=== PATIENT | female | born 1995 | race Caucasian/White ===

== ENCOUNTER 2021-10-26 11:57 | Outpatient (REF) | payer BC, SELFPAY ==
--- NOTE | 2021-10-26 08:45 | PAPFT_PTH ---
PATIENT: Karli Whitney LOC: [facility] U#:[id number] AGE/SX: 26/F ROOM: RE10/26/[address]: Rosamaria Henry : 1995 BED: DIS: 10/26/2021 SPEC #: [id number] RECD: 10/26/21 13:02 STATUS: TOSHA REPrincess #: [id number] DINH: 10/26/21 08:[address]: Rosamaria Henry DEPT: [facility] Cytology RECD BY: Chey Durand Tissues: 1 - CX/ENDOCX FOR PAP SMEARS Procedures: PAP THIN PREP/UVM Screening Comments: [id number]
== END 2021-10-26 11:58 | disposition home or self-care (01) ==
LOC: LBN 11:57
PROVIDERS: Visit Provider Obstetrics & Gynecology Gynecology
DX: Z12.4 Encounter for screening for malignant neoplasm of cervix (principal)
CPT/HCPCS: 88142

== ENCOUNTER 2022-03-05 19:59 | Emergency (ER) | payer BC, SELFPAY ==
[2022-03-05 20:21] VITALS: PULSE 100; RESP 18; TEMP 37.1; O2SAT 100
--- NOTE | 2022-03-05 20:30 | DI.CT_ITS ---
Exam(s) CT BRAIN CTA EXAM: CT BRAIN CTA CLINICAL HISTORY: headache, slurred speech. TECHNIQUE: Imaging Protocol: Both noninfused and contrast infused CT scans of the brain were perform ed. IV Contrast Dose =85 cc Axial computed tomography images with coronal and sagittal reformatted images were created and review ed COMPARISON: No exams were available for comparison FINDINGS: CTA BRAIN: Anterior circulation: Both internal carotid arteries are patent in the skull base-carotid canals as w ell within the cavernous sinuses. Supraclinoid aspects are patent. Both A1 segments are patent as a re the anterior cerebral arteries. There is no aneurysm at the level of the anterior communicating a rtery. Both middle cerebral arteries are patent. No high-grade stenosis nor occlusion. No aneurysms. Posterior circulation: Both vertebral arteries are patent at the skull base and both vertebral arteri es contribute to the formation of the basilar artery. Basilar artery is patent. Distally it gives o ff patent bilateral superior cerebellar arteries and above this level terminates as posterior cerebra l arteries which appear patent. No aneurysm at tip of the basilar artery. BRAIN: There are no skull fractures nor fluid in the visualized paranasal sinuses. There is no evidence of intracranial hemorrhage, mass effect, or shift of midline structures. There are no extra-axial fluid collections. The ventricles are not enlarged or shifted and there is no blo od within the ventricular system nor within the basal cisterns. There are no ring enhancing lesions in the brain and there is no abnormal meningeal enhancement, foca l or diffuse. IMPRESSION: No significant findings on this CT angiography study of the brain. Intracranial vessels are patent. No incidental aneurysm is evident No significant intracranial findings.Also no ring enhancing lesions in the brain nor abnormal meninge al enhancement. RADIATION DOSE DELIVERED: 1,606.81mGy.cm Total DLP DATA REPOSITORY: All CT scans at this facility are submitted to the National Radiology Data Registry (NRDR) Dose Index Registry (DIR) with the [employer] (ACR). RADIATION OPTIMIZATION: All CT scans at this facility use at least one of these dose optimization te chniques: automated exposure control; mA and/or kV adjustment per patient size (includes targeted exa ms where dose is matched to clinical indication); or iterative reconstruction.
--- NOTE | 2022-03-05 20:41 | ED.GENADUL_ITS ---
Discharge Plan Disposition Patient Disposition: HOME Condition: Stable Discharge Details Clinical Impression: Headache, Slurred speech, Migraine Primary Care Provider: Scotty Alvarado ED Provider: Daryl Pfeiffer Home Meds and New Rx's Prescriptions: Continued drospirenone-ethinyl estradiol [MADDISON (28)] 3-0.02 mg tablet 1 tab PO DAILY Qty: 84 4RF Discharge Instructions Additional Instructions: The blood work and cat scan did not show concerning findings. This was likely a complex migraine. If you continue to have symptoms or more frequent symptoms follow up with your primary care provider and discuss having an MRI or neurology referral. If you feel more ill, have severe worsening pain or weakness return to the emergency department Medical Decision Making 26 yo female who states she has a history of complex migraines causing hemiparesis but is normally on the left side and today had the symptoms on the right side. 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 She went home and took excedrin migraine and symptoms resolved similar to her prior episodes. She discussed with her pcp and was referred here because her grandmother had a brain aneurysm per patient. She currently has no symptoms, NIH of 0 and no deficits on neuro exam. Discussed with pt that this was likely a migraine given her history and resolution of symptoms with excedrin. Less likely TIA. She is concerned about an aneurysm based on her family history and after discussing with her she would like to pursue further with a cta. labs and imaging unremarkable, she remains stable with no symptoms currently, nih of 0. Suspect complex migraine but did discuss following up with pcp and if new symptoms discuss mri vs neurology referral for possible MS workup. Return precautions given Differential Diagnosis Differential Diagnosis: complex migraine, MS Imaging Data Radiologic Study: Attestation: I personally reviewed and interpreted this imaging study as follows: Imaging: CT Scan Radiologist's impression: IMPRESSION: 1. No acute intracranial findings on initial unenhanced images. 2. CTA head within normal limits. No aneurysm. No large vessel occlusion. Lab Data Lab results reviewed: Yes I reviewed the patient's lab results. HPI General Mode of arrival: ambulatory . Date/Time Provider Initiated Documentation: 03/05/22 20:01 . Limitations to Documentation: no limitations . Information obtained by: patient . History of Present Illness 26 year old F presents to the emergency department with the chief complaint of slurred speech, described as moderate, Patient started experiencing this hour(s) (6) and it has been now resolved. improves with No relieving factors improve s ymptom(s), No exacerbating factors reported . Patient notes denies fever/chills. Patient did receive the following treatments prior to arrival, other (excedrin migraine) Related Data Home Medications Medication Instructions Recorded Confirmed drospirenone 3 mg-ethinyl 1 tab PO DAILY #84 tab 10/19/21 11/22/21 estradiol 0.02 mg tablet (MADDISON (28)) Previous Rx's Medication Instructions Recorded drospirenone 3 mg-ethinyl 1 tab PO DAILY #84 tab 10/19/21 estradiol 0.02 mg tablet (MADDISON (28)) Allergies Allergy/AdvReac Type Severity Reaction Status Date / Time No Known Allergies Allergy Verified 10/11/21 14:58 General Stated Complaint: Headache MAXX: 3 Review of Systems All systems reviewed & are unremarkable except as noted in HPI and below Constitutional Constitutional: Denies chills and Denies fever(s) Cardiovascular Cardiovascular: Denies chest pain and Denies dyspnea Respiratory Respiratory: Denies cough and Denies dyspnea Gastrointestinal Gastrointestinal: Denies abdominal pain, Denies nausea and Denies vomiting Genitourinary Genitourinary: Denies dysuria Musculoskeletal Musculoskeletal: Denies joint swelling Integumentary/Breasts Skin/Breast: Denies rash PFSH All Active Problems (Updated 03/05/22 @ 21:44 by Daryl Pfeiffer MD) Headache (Acute) Slurred speech (Acute) Migraine (Chronic) Contraception, generic surveillance (Acute) 09/2021. Kyleena out. Maddison for BC. Pelvic pain (Acute) General counseling and advice on female contraception (Acute) OCPs in the past-not well tolerated. IUDs in the past-better tolerated 02/2021 Kyleena IUD inserted. 09/2021 Kyleena removed secondary to pelvic pain and uterine bleeding. Maddison initiated. Pain in right knee (Acute) Acne vulgaris (Acute) Cyst of Bartholin's gland duct (Acute) Insomnia (Acute) Mixed anxiety and depressive disorder (Acute) Social History (Updated 02/27/21 @ 15:13 by JAMARCUS Manning Smoking/Tobacco Use Status: Never Smoking risk assessment performed?: Yes Alcohol Intake: current Alcohol Intake frequency: a few times a week Alcohol type: wine Drug use: Never Substance use type: marijuana Details: using marijauna daily for sleep Household members: none Housing: house Number of Children: 0 Seatbelt use: always Do you feel safe at home: Yes Do you feel safe in your relationship?: Yes Female Reproductive History Menstrual control method: none History History 0 Para Hx # Term Pregnancies Multiple births Hx # Pregnancies Ectopic pregnancies AB induced Hx Number of Living Children AB spontaneous Exam Const General: no acute distress Orientation: alert HENMT Head: normal to inspection Ears: external ears normal General nose exam: external nose normal Mouth: moist mucous membranes Eyes General: appearance normal, both eyes and all related structures Neck Neck: normal visual inspection Resp Effort & Inspection: normal respiratory effort and able to speak in complete sentences Cardio Rate: regular rate Skin General skin exam: no rashes or lesions noted Neuro General: patient alert and patient oriented x3 Extrem General: normal to inspection Psych Mental Status: mental status grossly normal Course Vital Signs Vital signs: Vital Signs Temperature 37.1 C 03/05/22 20:21 Pulse 100 H 03/05/22 20:21 Respiratory Rate 18 03/05/22 20:21 Pulse Oximetry 100 03/05/22 20:21 Temperature 37.1 C 03/05/22 20:21 Temperature Source Tympanic 03/05/22 20:21 Pulse 100 H 03/05/22 20:21 Respiratory Rate 18 03/05/22 20:21 Respiratory Effort 03/05/22 20:25 Blood Pressure Position Supine 03/05/22 20:21 Pulse Oximetry 100 03/05/22 20:21 Oxygen Delivery Method Room Air 03/05/22 20:21 Oxygen Flow Rate 0 03/05/22 20:21 Pain Level 2 03/05/22 20:21 Lab/Test Results Lab/Test Results: POC- Test(urine) Negative PAWSS Have you Been Recently Intoxicated or Drunk Within the Last 30 days?: No Have you Ever Experienced Previous Episodes of Alcohol Withdrawal?: No Have you ever Experienced Withdrawal Seizures?: No Have you ever Experienced Delirium Tremens(DT)s?: No Have you ever undergone Alcohol Rehabilitation Treatment (i.e, inpt ot outpatient treatment programs)?: No Have you ever Experienced Blackouts?: No Have you ever Combined Alcohol with other Downers within the last 90 days?: No Have you ever Combined Alcohol with any other Substance of Abuse during the last 90 days?: No Positive Blood Alcohol level on Presentation? [PCS.BAL]: No Evidence of Increased Autonomic Activity (i.e. HR>120, tremor, sweating, agitation, nausea)?: No Result: 0
[2022-03-05] MEDS: Omnipaque 350 MG/ML 50 ML BTL IJ ×2 (20:50→20:51)
[2022-03-05] MEDS: Normal Saline Flush 10 ML SYR IVP (20:52)
[2022-03-05 21:03] LABS: Abs Immature Grans 0.01 10^3/uL (0.0-0.06); Absolute Basophil Count 0.05 10^3/uL (0.0-0.2); Absolute Eosinophil Count 0.11 10^3/uL (0.0-0.7); Absolute Lymphocyte Count 2.75 10^3/uL (1.2-3.4); Absolute Monocyte Count 0.51 10^3/uL (0.1-0.8); Absolute Neutrophil Count 3.71 10^3/uL (1.2-6.7); Basophils % 0.7; Eosinophils % 1.5; HGB 13.3 g/dL (11.2-15.7); Immature Grans % 0.1; Lymphocytes % 38.5; MCH 28.9 pg (27.0-33.0); MCV 83 fL (80-95); MPV 9.8 fL (8.0-11.0); Monocytes % 7.1; Neutrophils % 52.1; Platelet Count 272 10^3/uL (130-400); RDW 10.6 % (11.7-14.6); RDW-SD 31.7 fL; WBC 7.14 10^3/uL (4.4-10.8)
[2022-03-05 21:14] LABS: ALT 15 U/L (14-59); AST 11 U/L (15-37); Albumin 3.9 g/dL (3.4-5.0); Alkaline Phosphatase 34 U/L (46-116); Anion Gap 8.5 mmol/L (3-11); BUN 10 mg/dL (7-18); Bilirubin, Total 0.4 mg/dL (0.2-1.0); CO2 26.5 mmol/L (21.0-32.0); CREATININE 0.9 mg/dL (0.55-1.02); Calcium 8.7 mg/dL (8.5-10.1); Chloride 105 mmol/L (98-107); Glucose 98 mg/dL (74-106); Potassium 3.3 mmol/L (3.5-5.1); Sodium 140 mmol/L (136-145); Total Protein 7.1 g/dL (6.4-8.2)
--- NOTE | 2022-03-05 21:23 | DI.VRAD_ITS ---
PROCEDURE INFORMATION: Exam: CT Angiography Head With Contrast, Arteriography Exam date and time: 03/05/2022 8:52 PM Age: 26 years old Clinical indication: Headache, slurred speech TECHNIQUE: Imaging protocol: Computed tomography angiography of the head with contrast. Exam focused on the arteries. 3D rendering (Not supervised by radiologist): MIP and/or 3D reconstructed images were created by the technologist. Contrast material: 350; Contrast volume: 85 ml; Contrast route: INTRAVENOUS (IV); COMPARISON: No relevant prior studies available. FINDINGS: ANTERIOR CIRCULATION: Right internal carotid artery: Unremarkable. Intracranial segment is patent with no significant stenosis. No aneurysm. Right middle cerebral artery: Unremarkable. No occlusion or significant stenosis. No aneurysm. Right anterior cerebral artery: Patent anterior communicating artery. No occlusion or significant stenosis. No aneurysm. Left internal carotid artery: Unremarkable. Intracranial segment is patent with no significant stenosis. No aneurysm. Left middle cerebral artery: Unremarkable. No occlusion or significant stenosis. No aneurysm. Left anterior cerebral artery: Patent anterior communicating artery. No occlusion or significant stenosis. No aneurysm. POSTERIOR CIRCULATION: Right vertebral artery: Unremarkable. No occlusion or significant stenosis. No aneurysm. Left vertebral artery: Unremarkable. No occlusion or significant stenosis. No aneurysm. Basilar artery: Unremarkable. No occlusion or significant stenosis. No aneurysm. Right posterior cerebral artery: Unremarkable. No occlusion or significant stenosis. No aneurysm. Left posterior cerebral artery: Unremarkable. No occlusion or significant stenosis. No aneurysm. Brain: No definite mass, mass effect, or midline shift. No acute hemorrhage. Cerebral ventricles: No ventriculomegaly. Bones/joints: Unremarkable. No acute fracture. Soft tissues: Unremarkable. IMPRESSION: 1. No acute intracranial findings on initial unenhanced images. 2. CTA head within normal limits. No aneurysm. No large vessel occlusion. Dictated and Authenticated by: Cl Kaufman MD. Ordering:ALBERTO Brito MD
== END 2022-03-05 21:51 | disposition home or self-care (01) ==
PROVIDERS: Emergency Provider Emergency Medicine; PCP Nurse Practitioner Family
DX: R51.9 Headache, unspecified (principal); R47.81 Slurred speech; G43.809 Other migraine, not intractable, without status migrainosus; Z82.49 Family history of ischemic heart disease and other diseases of the circulatory system
CPT/HCPCS: 70496; 80053; 81025; 99285; 85025; 99284; Q9967

== ENCOUNTER 2024-06-05 09:19 | Emergency (ER) | payer SELFPAY ==
[2024-06-05 09:31] VITALS: BP 108/84; PULSE 72; RESP 18; TEMP 37.1; O2SAT 100
[2024-06-05 09:36] VITALS: BP 018/84; PULSE 72; RESP 18; TEMP 37.1; O2SAT 100
--- NOTE | 2024-06-05 10:00 | DI.CT_ITS ---
Exam(s) CT HEAD WO EXAM: CT HEAD WO CLINICAL HISTORY: headache. TECHNIQUE: Imaging Protocol: Axial computed tomography images with coronal and sagittal reformatted images were created and reviewed COMPARISON: CT CT BRAIN CTA from 03/05/2022 FINDINGS: There are no skull fractures. There is no fluid in the visualized paranasal sinuses. There is no evidence of intracranial hemorrhage, mass effect, or shift of midline structures. There are no extra-axial fluid collections. The ventricles are not enlarged or shifted and there is no blo od within the ventricular system nor within the basal cisterns. IMPRESSION: No acute intracranial findings on this noninfused CT scan of the brain. Called by myself to ER 06/05/2024 10:40 a.m. RADIATION DOSE DELIVERED: Total DLP DATA REPOSITORY: All CT scans at this facility are submitted to the National Radiology Data Registry (NRDR) Dose Index Registry (DIR) with the [employer] (ACR). RADIATION OPTIMIZATION: All CT scans at this facility use at least one of these dose optimization te chniques: automated exposure control; mA and/or kV adjustment per patient size (includes targeted exa ms where dose is matched to clinical indication); or iterative reconstruction.
--- NOTE | 2024-06-05 10:16 | ED.GENADUL_ITS ---
Discharge Plan Disposition Patient Disposition: Home Condition: Stable Discharge Details Clinical Impression: Migraine headache Primary Care Provider: Scotty Alvarado ED Provider: Leonardo Sabillon Home Meds and New Rx's Prescriptions: Continued Ubrelvy 100 mg tablet 100 mg PO ONCE PRN Rx Instructions: as a single dose; may repeat once in >=2 hours after first dose if needed Discontinued riboflavin (vitamin B2) 400 mg tablet 400 mg PO DAILY magnesium citrate,mag oxide 250 mg capsule 250 mg PO Rx Instructions: 2 tabs Discharge Instructions Instructions: Migraine in adults Additional Instructions: Please avoid activities that precipitate migraines. Avoid impacting her head and sports activities (ie. No head balls). Please follow-up with your neurologist. Please contact your primary care physician to arrange follow-up. Return to the ER immediately for any worsening or new concerning symptoms. Referrals: Scotty Alvarado [Primary Care Provider] - [facility] General Mode of arrival: ambulatory . Date/Time Provider Initiated Documentation: 06/05/24 09:31 . Limitations to Documentation: no limitations . Information obtained by: patient . HPI Narrative: 29yo female with history of hemiplegic migraine here with new onset headache. Patient notes that she was playing soccer and heading balls 2 days ago - she does not typically head balls. Immediately following the game, she states she was looking at bright lights, speaking with relatives, and suddenly developed visual defect. She notes visual disturbance, and blurring of her right upper visual field bilateral eyes. She then developed associated severe nausea. She had an episode of confusion and expressive aphasia. She notes she knew what she wanted to say but could not say it. She then developed headache as well as i nitially left hand and then right hand numbness described as [id number]. She went to bed and woke up the next day with continued heaviness in her head and more general visual disturbance described as difficulty reading with moving letters. She notes associated upper posterior neck pain bilaterally. Patient states she has never had similar symptoms with her migraine history in the past. Patient is followed by [facility] neurology for her migraines. Related Data Home Medications ?Medication ?Instructions ?Recorded ?Confirmed ubrogepant 100 mg tablet (Ubrelvy) 100 mg PO ONCE PRN 11/22/22 06/05/24 Allergies Allergy/AdvReac Type Severity Reaction Status Date / Time No Known Allergies Allergy Verified 06/05/24 09:37 General Stated Complaint: Headache MAXX: 3 Review of Systems All systems reviewed & are unremarkable except as noted in HPI and below Constitutional Constitutional: Denies fever(s) Integumentary/Breasts Skin/Breast: Denies rash Neurologic Neurologic: Reports as per HPI Exam Const General: cooperative and no acute distress [facility] Head: normocephalic and atraumatic Eyes Visual Lim: normal visual lim by confrontation Alignment and Position: alignment normal Conjunctivae: normal conjunctivae Sclera: normal sclerae Pupils: PERRL EOM: EOM intact bilaterally Neck Neck: trachea midline and supple Resp Auscultation: clear to auscultation bilaterally, no rales, no rhonchi and no wheezes Cardio Rate: regular rate and not tachycardic Rhythm: regular rhythm GI Palpation: soft, not firm, no guarding, no masses, not rigid and nontender Skin General skin exam: no rashes or lesions noted Neuro General: patient alert, patient awake, patient oriented x3, tone normal, no meningeal signs and deep tendon reflexes 2+ bilaterally Cognition: normal cognition Speech: speech normal Motor: strength 5/5 throughout Sensory Exam: no sensory deficits noted DTR's: Rt Patellar: 3+ and Lt Patellar: 3+ Coordination: [id number] test normal and other (Rapid alternating movement normal) Extrem General: no edema Psych Appearance: grossly normal Mental Status: mental status grossly normal Speech and Movement: speech and movement normal Course Vital Signs Vital signs: Vital Signs Temperature 37.1 C 06/05/24 09:31 Pulse 72 06/05/24 09:31 Respiratory Rate 18 06/05/24 09:31 Blood Pressure 108/84 06/05/24 09:31 Pulse Oximetry 100 06/05/24 09:31 Temperature 37.1 C 06/05/24 09:36 Temperature Source Temporal Artery Scan 06/05/24 09:36 Pulse 72 06/05/24 09:36 Respiratory Rate 18 06/05/24 09:36 Respiratory Effort Normal, Non-Labored 06/05/24 09:38 Blood Pressure 018/84 L 06/05/24 09:36 Blood Pressure Position Sitting 06/05/24 09:36 Pulse Oximetry 100 06/05/24 09:36 Oxygen Delivery Method Room Air 06/05/24 09:36 Oxygen Flow Rate 0 06/05/24 09:36 Lab/Test Results Lab/Test Results: POC- Test(urine) Negative Medical Decision Making 1025?- 29-year-old female with past medical history significant for hemiplegic migraine, here with headache 2 days after repetitive head injury while heading a soccer ball. Patient had complex and concerning symptoms initially with onset of headache including right upper visual defect, confusion, expressive aphasia, bilateral paresthesia. The symptoms and course are not typical for her migraine in the past. She continues to have discomfort described as heaviness and continued visual disturbance difficulty reading. I reviewed past medical record: Patient had CTA of the brain 03/05/2022 as interpreted by radiology: No significant findings on this CT angiography study of the brain. Intracranial vessels are patent. No incidental aneurysm is evident No significant intracranial findings.Also no ring enhancing lesions in the brain nor abnormal meningeal enhancement. Presentation is not consistent with typical subarachnoid hemorrhage but will obtain stat CT of the head to assess for bleeding or mass. Plan obtain teleneurology consult. --CT of the head interpreted radiology: Normal. --MRI of the brain interpreted by radiology: Normal. Labs reviewed and nondiagnostic. 1409 --patient was seen by teleneurology who feels presentation consistent with complex migraine and recommends typical migraine treatment. No further recommendations at this time. They did review imaging and no abnormalities noted. Patient reassessed has remained stable. I recommended medication for migraine and patient declined. Patient provided informed refusal and wishes to be discha rged at this time. She plans to take her medication as prescribed. Disposition decision was made weighing the risks and benefits of hospitalization versus outpatient treatment, the risk for further decompensation, and the patient's wishes. The patient was stable and requested discharge. Prior to discharge, my usual and customary return precautions were reviewed with the patient - this included follow-up instructions and reason to return to the emergency department if condition worsens, does not improve as expected, or other new concerns arise. Lab Data Lab results reviewed: Yes I reviewed the patient's lab results. Labs: Laboratory Tests Range/Units 06/05/24 10:54 WBC (4.4-10.8) 10^3/uL 5.62 RBC (3.93-5.22) 10^6/uL 4.75 Hgb (11.2-15.7) g/dL 13.8 Hct (36.0-46.0) % 40.4 MCV (80-95) fL 85 MCH (27.0-33.0) pg 29.1 MCHC (32.0-36.0) % 34.2 RDW (11.7-14.6) % 11.0 L Plt Count (130-400) 10^3/uL 250 MPV (8.0-11.0) fL 9.2 Immature Gran % % 0.2 Neutrophils % % 63.5 Lymphocytes % % 27.2 Monocytes % % 7.3 Eosinophils % % 0.9 Basophils % % 0.9 Nucleated RBC % (0.0-0.3) % 0.0 Absolute Neutrophils (1.2-6.7) 10^3/uL 3.57 Absolute Lymphocytes (1.2-3.4) 10^3/uL 1.53 Absolute Monocytes (0.1-0.8) 10^3/uL 0.41 Absolute Eosinophils (0.0-0.7) 10^3/uL 0.05 Absolute Basophils (0.0-0.2) 10^3/uL 0.05 Sodium (136-145) mmol/L 142 Potassium (3.5-5.1) mmol/L 4.3 Chloride (98-107) mmol/L 106 Carbon Dioxide (21.0-32.0) mmol/L 30.2 Anion Gap (3-11) mmol/L 5.8 BUN (7-18) mg/dL 10 Creatinine (0.55-1.02) mg/dL 0.9 Est GFR (CKD-EPI 2020) (mL/min/1.73m2) 89.30 Glucose (74-106) mg/dL 84 Calcium (8.5-10.1) mg/dL 9.1 Total Bilirubin (0.2-1.0) mg/dL 0.50 AST (15-37) U/L 13 L ALT (14-59) U/L 15 Alkaline Phosphatase (46-116) U/L 50 Total Protein (6.4-8.2) g/dL 7.1 Albumin (3.4-5.0) g/dL 4.0 Quality:SDOH Health Related Social Needs: No Data to Display PFSH All Active Problems (Updated 06/05/24 @ 14:07 by Leonardo Sabillon MD) Migraine headache (Chronic) Hemiplegic migraine (Acute) 2021. While taking OCPs. OCPs discontinued. Negative MRI Contraception, generic surveillance (Acute) 09/2021. Kyleena out. Sole for BC. 2021. Sole stopped 2/2 severe migraine. 10/2022. Uses withdrawal and Plan B Pelvic pain (Acute) General counseling and advice on female contraception (Acute) OCPs in the past-not well tolerated. IUDs in the past-better tolerated 02/2021 Kyleena IUD inserted. 09/2021 Kyleena removed secondary to pelvic pain and uterine bleeding. Sole initiated. Pain in right knee (Acute) Acne vulgaris (Acute) Cyst of Bartholin's gland duct (Acute) 2020. I&D. Not infected. Mucus filled. 10/2022. Recurrent lesion. I&D and marsupialization performed 12/2022. Insomnia (Acute) Mixed anxiety and depressive disorder (Acute) Social History Smoking/Tobacco Use Status: Never Smoking risk assessment performed?: Yes Alcohol Intake: current Alcohol Intake frequency: holidays/special occasions only Alcohol type: wine Drug use: Never Substance use type: marijuana Details: using marijauna daily for sleep Household members: significant other and other Details: H-Demarco. Housing: house Number of Children: 0 Education Level: college current occupation: Physical therapist. Seatbelt use: always Do you feel safe at home: Yes Do you feel safe in your relationship?: Yes Female Reproductive History Menstrual control method: none History History 0 Para Hx # Term Pregnancies Multiple births Hx # Pregnancies Ectopic pregnancies AB induced Hx Number of Living Children AB spontaneous
[2024-06-05 11:03] LABS: Abs Immature Grans 0.01 10^3/uL (0.0-0.06); Absolute Basophil Count 0.05 10^3/uL (0.0-0.2); Absolute Eosinophil Count 0.05 10^3/uL (0.0-0.7); Absolute Lymphocyte Count 1.53 10^3/uL (1.2-3.4); Absolute Monocyte Count 0.41 10^3/uL (0.1-0.8); Absolute Neutrophil Count 3.57 10^3/uL (1.2-6.7); Basophils % 0.9 %; Eosinophils % 0.9 %; HCT 40.4 % (36.0-46.0); HGB 13.8 g/dL (11.2-15.7); Immature Grans % 0.2 %; Lymphocytes % 27.2 %; MCH 29.1 pg (27.0-33.0); MCHC 34.2 % (32.0-36.0); MCV 85 fL (80-95); MPV 9.2 fL (8.0-11.0); Monocytes % 7.3 %; Neutrophils % 63.5 %; Platelet Count 250 10^3/uL (130-400); RBC 4.75 10^6/uL (3.93-5.22); RDW-SD 34.1 fL; WBC 5.62 10^3/uL (4.4-10.8)
--- NOTE | 2024-06-05 11:15 | DI.MRI_ITS ---
Exam(s) MR BRAIN WO EXAM: MR BRAIN WO CLINICAL HISTORY: headache, visual change, complex neuro sxs TECHNIQUE: Multiplanar multisequence MRI of the brain was performed. COMPARISON: No exams were available for comparison FINDINGS: CEREBRAL PARENCHYMA: There is no evidence of intracranial hemorrhage, mass effect, or shift of midline structures. There are no extra-axial fluid collections. Ventricles are not enlarged or shifted. There is no evidence of cerebellar tonsillar ectopia. There is no significant focal signal abnormality in the cerebellar hemispheres nor within the griselda, m idbrain, and thalami. There is no abnormal signal abnormality in the periventricular white matter. There is no significant focal signal abnormality evident on diffusion imaging to suggest acute ischem ic event. SWI: No evidence of microhemorrhages in the brain. PITUITARY GLAND: No mass nor parasellar abnormality. No obvious abnormality in the cavernous sinuses. FLOW VOIDS: The expected flow void are noted. No evidence of obvious aneurysm nor obvious vascular ma lformation. PARANASAL SINUSES: The visualized paranasal sinuses appear unremarkable. No obvious finding ORBITS: No obvious findings. IMPRESSION: No significant intracranial findings on this noninfused MRI scan of the brain. DATA REPOSITORY:
--- NOTE | 2024-06-05 11:15 | DI.MRI_ITS ---
Exam(s) MR ANGIO BRAIN WO MR ANGIO NECK WO EXAM: MAGNETIC RESONANCE ANGIOGRAPHY OF THE NECK AND HEAD CLINICAL HISTORY: headache, visual change, complex neuro presentatio. TECHNIQUE: Performed on 1.5 sommer unit with [id number] sequence CONTRAST MATERIAL: IV Contrast: None COMPARISON: Brain CT scan earlier same date reviewed FINDINGS: MRA NECK: ANTERIOR CIRCULATION: Both common carotid arteries ascend with normal luminal diameters. No signific ant atherosclerotic disease evident at the carotid bifurcations and proximal ICAs and the internal ca rotid arteries exhibit unremarkable straight line flow in the upper neck and skull base-carotid canal s. POSTERIOR CIRCULATION: Both vertebral arteries arise in conventional fashion off of the subclavian ar teries without significant stenosis at the origins. Both vertebral arteries ascend in the foramen tr ansverse area with normal and equal diameters. At the skull base both vertebral arteries contribute to the formation of the basilar artery. There is no evidence of vertebral artery thrombosis, stenosi s, nor dissection. MRA BRAIN: ANTERIOR CIRCULATION: Both internal carotid arteries are patent in the skull base-carotid canals and are also patent in the cavernous sinuses. Supraclinoid aspects appear unremarkable and nonaneurysmal . Both A1 segments are patent as are the anterior cerebral arteries. Both middle cerebral arteries are patent without evidence of significant stenosis nor intraluminal th rombus. In flow is seen out to the sylvian fissure branches bilaterally. POSTERIOR CIRCULATION: Both vertebral arteries contribute to the formation of the basilar artery at t he skull base. The basilar artery ascends with normal luminal diameter. No stenosis. No dissection . Distally gives off superior cerebellar arteries and above this level terminates as patent bilatera l posterior cerebral arteries which do not exhibit significant stenosis. There is no aneurysm of the tip of the basilar artery. There are posterior communicating arteries also evident on both sides of the [id number]. DURAL VENOUS SINUSES: There is no evidence of obvious venous sinus thrombosis. Asymmetric flow in th e right transverse sinus is most probably developmental variant. IMPRESSION: 1. No significant stenosis nor dissection in the carotid and vertebral arteries in the neck. 2. No significant stenosis nor thrombosis of intracranial arteries. DATA REPOSITORY:
[2024-06-05 11:25] LABS: ALT 15 U/L (14-59); AST 13 U/L (15-37); Alkaline Phosphatase 50 U/L (46-116); Anion Gap 5.8 mmol/L (3-11); BUN 10 mg/dL (7-18); CO2 30.2 mmol/L (21.0-32.0); CREATININE 0.9 mg/dL (0.55-1.02); Calcium 9.1 mg/dL (8.5-10.1); Chloride 106 mmol/L (98-107); Glucose 84 mg/dL (74-106); Potassium 4.3 mmol/L (3.5-5.1); Sodium 142 mmol/L (136-145); Total Protein 7.1 g/dL (6.4-8.2)
[2024-06-05 13:57] VITALS: BP 122/84; PULSE 75
[2024-06-05 14:00] VITALS: PULSE 57
--- NOTE | 2024-06-05 15:38 | DI.VRAD_ITS ---
PROCEDURE INFORMATION: Exam: MRA Head Without Contrast; Arteriography Exam date and time: 06/05/2024 12:00 PM Age: 29 years old Clinical indication: Headache and visual disturbance; Type not specified TECHNIQUE: Imaging protocol: Magnetic resonance angiography head without contrast. Ntad-[id number]-[id number] (TOF) technique was utilized for this exam. Exam focused on the arteries. COMPARISON: CT BRAIN CTA 03/05/2022 8:52 PM FINDINGS: ANTERIOR CIRCULATION: Right internal carotid artery: Intracranial segment is patent with no significant stenosis. No aneurysm. Right middle cerebral artery: No occlusion or significant stenosis. No aneurysm. Right anterior cerebral artery: No occlusion or significant stenosis. No aneurysm. Left internal carotid artery: Intracranial segment is patent with no significant stenosis. No aneurysm. Left middle cerebral artery: No occlusion or significant stenosis. No aneurysm. Left anterior cerebral artery: No occlusion or significant stenosis. No aneurysm. POSTERIOR CIRCULATION: Right vertebral artery: No occlusion or significant stenosis. No aneurysm. Left vertebral artery: No occlusion or significant stenosis. No aneurysm. Basilar artery: No occlusion or significant stenosis. No aneurysm. Right posterior cerebral artery: No occlusion or significant stenosis. No aneurysm. Left posterior cerebral artery: No occlusion or significant stenosis. No aneurysm. IMPRESSION: No stenosis or occlusion. Dictated and Authenticated by: Yovany Brooks MD. Ordering:CHRISTOPHER Patterson MD
== END 2024-06-05 14:15 | disposition home or self-care (01) ==
PROVIDERS: Emergency Provider Student in an Organized Health Care Education/Training Program; PCP Nurse Practitioner Family
DX: G43.809 Other migraine, not intractable, without status migrainosus (principal)
CPT/HCPCS: 36415; 70544; 70547; 80053; 81025; 99285; 70450; 70551; 85025; 99284